=== PATIENT | male | born 1940 | race Caucasian/White ===

== ENCOUNTER 2018-09-27 16:17 | Emergency (ER) | payer MEDICARE, BC ==
[~2018-09-27] VITALS: Ht 177.8 cm; Wt 80.7 kg
--- NOTE | 2018-09-27 16:35 | NUR ---
CAME IN FOR R FOOT PAIN, R SHOULDER PAIN, RFA ABRASION S/P GARAGE DOOR FELL ON AFFECTED EXTREMITY X TODAY 1400. TO ER BED 10, AOx4 , HOOKED TO MONITOR, CHANGED TO GOWN, PROVIDED W WARM BLANKET, AWAITING MD COTTON.
--- NOTE | 2018-09-27 17:10 | NUR ---
DR KEVIN AT BEDSIDE
--- NOTE | 2018-09-27 19:10 | NUR ---
tech at bedside for wound care
[2018-09-27] MEDS ORDERED: TDAP [DIPH/PERTUSSIS/TET] 0.5 ML VIAL IM ONE ×2 (19:26→19:30)
--- NOTE | 2018-09-27 19:34 | NUR ---
Patient discharged to home in stable condition. Written and verbal after care instructions given. Patient verbalizes understanding of instruction.
[2018-09-27 19:36] VITALS: BP 100/62
== END 2018-09-27 19:37 | disposition home or self-care (01) ==
LOC: ER 16:23
DX: S50.811A Abrasion of right forearm, initial encounter (principal); M25.571 Pain in right ankle and joints of right foot; Z60.2 Problems related to living alone; W18.39XA Other fall on same level, initial encounter; Y93.89 Activity, other specified; Y92.89 Other specified places as the place of occurrence of the external cause; Y99.8 Other external cause status
CPT/HCPCS: 73610-TC; 90715